=== PATIENT | male | born 1945 | race Caucasian/White ===

== ENCOUNTER 2016-05-29 18:03 | Outpatient (CLI) | payer MEDICARE, BC ==
[2016-05-29 18:41] LABS: ALT (SGPT) 41 U/L (0-55); AST (SGOT) 30 U/L (5-34); Alkaline Phosphatase 63 U/L (40-150); Anion Gap 13 mmol/L (10-20); BUN (Urea Nitrogen) 14 mg/dL (8.4-25.7); Bilirubin, Total 0.8 mg/dL (0.2-1.2); Calc. Creatinine Clearance 0 mL/min (70-130); Calcium 9.6 mg/dL (7.8-10.44); Carbon Dioxide 27 mmol/L (23-31); Chloride 105 mmol/L (98-107); Estimated GFR-MDRD 88; Globulin 2.9 g/dL (2.4-3.5); LDL Cholesterol, Calculated 48 mg/dL; Protein, Total 7.6 g/dL (5.8-8.1)
[2016-05-29 19:25] LABS: Band 2 % (5-11); Hematocrit 45.7 % (42.0-52.0); Mean Platelet Volume 7.5 fL (7.4-10.4); Neutrophil 48 % (42-75); White Blood Cell (WBC) Count 6.9 thou/uL (4.8-10.8)
== END 2016-05-29 18:04 | disposition home or self-care (01) ==
LOC: NAV SJFMSP 18:03
PROVIDERS: ATTEND Family Medicine
DX: Z12.5 Encounter for screening for malignant neoplasm of prostate (principal); J45.909 Unspecified asthma, uncomplicated; E78.5 Hyperlipidemia, unspecified
CPT/HCPCS: 80053; 80061; 84439; 84443; 85025; G0103

== ENCOUNTER 2016-12-30 12:17 | Emergency (ER) | payer MEDICARE, BC ==
[2016-12-30] MEDS ORDERED: Lidocaine 1% 20 ML MDV ONE (12:31)
[2016-12-30] MEDS ORDERED: Bacitracin Zinc 1 Packet ONE (13:18)
== END 2016-12-30 13:33 | disposition home or self-care (01) ==
LOC: NAV ERS 12:17
DX: S61.411A Laceration without foreign body of right hand, initial encounter (principal); Z79.899 Other long term (current) drug therapy; W45.8XXA Other foreign body or object entering through skin, initial encounter; Y92.009 Unspecified place in unspecified non-institutional (private) residence as the place of occurrence of the external cause
CPT/HCPCS: 12001; J2001

== ENCOUNTER 2023-09-29 20:02 | Emergency (ER) | payer MEDICARE, BC ==
[2023-09-29 20:37] LABS: #Basophils 0.1 thou/uL (0.0-0.2); #Eosinphils 0.4 thou/uL (0.0-0.7); #Lymphocytes 1.8 thou/uL (1.20-3.40); #Monocytes 0.6 thou/uL (0.11-0.59); #Neutrophils 7.3 thou/uL (1.40-6.50); %Basophils 0.7 % (0.0-1.0); %Eosinophils 4.3 % (0.0-10.0); %Lymphocytes 17.1 % (21.0-51.0); %Monocytes 6.1 % (0.0-10.0); %Neutrophils 71.8 % (42.0-75.0); Hematocrit 29.9 % (42.0-52.0); Mean Corpuscular HGB CONC 33.4 g/dL (32.0-36.0); Mean Corpuscular Hemoglobin 30.2 pg (27.0-31.0); Mean Corpuscular Volume 90.5 fl (78.0-98.0); Mean Platelet Volume 7.4 fL (7.4-10.4); Platelet Count 199 10x3/uL (130-400); RBC Distribution Width 11.5 % (11.5-14.5); White Blood Cell (WBC) Count 10.2 10x3/uL (4.8-10.8)
[2023-09-29 20:39] LABS: INR-International Normal Ratio 1.1; Prothrombin Time 13.7 sec (12.0-14.7)
[2023-09-29 20:40] LABS: PTT 25.5 sec (22.9-36.1)
[2023-09-29 20:46] LABS: ALT (SGPT) 35 U/L (8-55); AST (SGOT) 28 U/L (5-34); Albumin 4.1 g/dL (3.4-4.8); Alkaline Phosphatase 59 U/L (40-110); Anion Gap 17 mmol/L (10-20); BUN (Urea Nitrogen) 17 mg/dL (8.4-25.7); Bilirubin, Total 0.6 mg/dL (0.2-1.2); Calc. Creatinine Clearance 0 mL/min (70-130); Calcium 9.2 mg/dL (7.8-10.44); Carbon Dioxide 22 mmol/L (23-31); Chloride 106 mmol/L (98-107); Estimated GFR 71; Globulin 2.7 g/dL (2.4-3.5); Glucose 154 mg/dL (83-110); Potassium 4.7 mmol/L (3.5-5.1); Protein, Total 6.8 g/dL (5.8-8.1); Sodium 140 mmol/L (136-145)
== END 2023-09-29 22:18 | disposition short-term general hospital (02) ==
LOC: NAV ERS 20:02
DX: K92.2 Gastrointestinal hemorrhage, unspecified (principal)
CPT/HCPCS: 80053; 82274; 85025; 85610; 85730; 99285